=== PATIENT | male | born 1980 | race Caucasian/White ===

== ENCOUNTER → 2024-10-03 | Outpatient (CLI) | payer MEDICARE, MEDICAID, SELFPAY ==
--- NOTE | 2024-10-03 14:00 | XR_ITS ---
Examination: CT abdomen with intravenous contrast CT pelvis with intravenous contrast 2-D coronal reconstructions 2-D sagittal reconstructions Date and time of exam:October 03, 2024 1459 hours INDICATIONS: Umbilical pain and drainage several days at the umbilicus. CTDI: vol (mGy) 29.4 DLP: (mGycm) 2240 Technique: Multiple axial sections of the abdomen and pelvis have been obtained. 64 slice high-resolution scanner used. 3 mm axial sections have been obtained, post intravenous injection 60 cc [id number] 2-D sagittal, coronal reconstructions obtained. Low dose protocols were performed. One or more of the following dose reduction techniques were used; automated exposure control, adjustment of the mA and/or KV according to patient size, use of iterative reconstruction technique. Findings: No focal liver or splenic lesions No gallstones No pancreatic or adrenal mass Because of the patient's size portions of the left anterior abdomen are not included on this exam No bowel obstruction Normal appendix Thickening of the umbilical tract with a 4 cm fat-containing umbilical hernia Umbilical abscess is partly visualized, 24 x 19 mm Urinary bladder intact Advanced disc narrowing L5-S1 IMPRESSION: Umbilical tract abscess 24 x 19 mm
== END | disposition home or self-care (01) ==
DX: L02.216 Cutaneous abscess of umbilicus (principal); K42.9 Umbilical hernia without obstruction or gangrene
CPT/HCPCS: 74177; A4649; Q9967